=== PATIENT | female | born 1960 | race Caucasian/White ===

== ENCOUNTER 2020-05-17 18:01 | Emergency (ER) | payer OTHER ==
[~2020-05-17 18:01] MED LIST: ASPIR 8181 MG PO; CELEBREX 100MG100 MG PO; CETIRIZINE HCL10 MG PO; COREG 3.125M3.125 MG PO; CYMBALTA60 MG PO; DITROPAN XL5 MG PO; ELIQUIS5 MG PO; FOLIC ACID 1 MG1 MG PO; K-DUR TAB 20 M20 MEQ PO; LIPITOR TAB 1010 MG PO; LODINE CAP 300300 MG PO; LYRICA75 MG PO; MEDROL4 MG PO; MELATONIN3 MG PO; NITROSTAT 0.425 TAB SL; PREDNISONE 10 M10 MG PO; PREDNISONE 20 M20 MG PO; PREDNISONE5 M1 PO; PROTONIX40 MG PO; REQUIP1 MG PO; TENORMIN 50 MG50 MG PO; VITAMIN B-121000 MCG PO; VITAMIN B-6100 MG PO; VITAMIN D250000 UNIT PO; ZANAFLEX4 MG PO; ZAROXOLYN/DIULO5 MG PO; ZYLOPRIM 100 M100 MG PO
[2020-05-17 19:58] LABS: HEMOGLOBIN 12.4 gm/dl (12.3-15.3); RED BLOOD COUNT 4.51 M/UL (4.00-5.10)
[2020-05-17 20:24] LABS: BUN/CREATININE RATIO 20 (0-10)
== END 2020-05-17 22:24 | disposition home or self-care (01) ==
LOC: ER1 18:01
PROVIDERS: Physician Assistant Medical
DX: M79.89 Other specified soft tissue disorders (principal); M06.9 Rheumatoid arthritis, unspecified; Z86.73 Personal history of transient ischemic attack (TIA), and cerebral infarction without residual deficits; Z96.652 Presence of left artificial knee joint
CPT/HCPCS: 36415; 73564; 80053; 85025; 85379; 85610; 99284; Q9967

== ENCOUNTER → 2020-05-18 | Outpatient (CLI) | payer OTHER ==
[~2020-05-18] MED LIST changes: +ALLOPURINOL100 MG PO; +DULOXETINE HCL60 MG PO; +ENDOCET 7.5-321 EACH PO; +FOLIC ACID1 MG PO; +LEFLUNOMIDE10 MG PO; +MACROBID 100 M100 MG PO; +OXYBUTYNIN CHLO10 MG PO; +POTASSIUM CHLO20 ME1 PO; +PREDNISONE10 MG PO; +RINVOQ ER15 MG PO; +ROPINIROLE HCL2 MG PO; +TIZANIDINE HCL4 MG PO; +TOPROL XL 25 MG25 MG PO; +VITAMIN B-12 PO; +VITAMIN B-6 PO; +XARELTO 10 MG T10 MG PO; +XARELTO20 MG PO
== END ==
LOC: US 13:59
DX: M79.662 Pain in left lower leg (principal); M71.22 Synovial cyst of popliteal space [Baker], left knee
CPT/HCPCS: 93971

== ENCOUNTER 2020-06-19 05:54 | Emergency (ER) | payer OTHER ==
[~2020-06-19 05:54] MED LIST changes: -ALLOPURINOL100 MG PO; -DULOXETINE HCL60 MG PO; -ENDOCET 7.5-321 EACH PO; -FOLIC ACID1 MG PO; -LEFLUNOMIDE10 MG PO; -MACROBID 100 M100 MG PO; -OXYBUTYNIN CHLO10 MG PO; -POTASSIUM CHLO20 ME1 PO; -PREDNISONE10 MG PO; -RINVOQ ER15 MG PO; -ROPINIROLE HCL2 MG PO; -TIZANIDINE HCL4 MG PO; -TOPROL XL 25 MG25 MG PO; -VITAMIN B-12 PO; -VITAMIN B-6 PO; -XARELTO 10 MG T10 MG PO; -XARELTO20 MG PO
[2020-06-19 08:21] LABS: HEMOGLOBIN 11.8 gm/dl (12.3-15.3); RED BLOOD COUNT 4.39 M/UL (4.00-5.10)
[2020-06-19 08:43] LABS: BUN/CREATININE RATIO 24 (0-10)
== END 2020-06-19 12:45 | disposition home or self-care (01) ==
LOC: ER1 05:54
PROVIDERS: Student in an Organized Health Care Education/Training Program
DX: M06.9 Rheumatoid arthritis, unspecified (principal); Z86.711 Personal history of pulmonary embolism; Z79.899 Other long term (current) drug therapy; Z20.822 Contact with and (suspected) exposure to COVID-19
CPT/HCPCS: 0240U; 80053; 81001; 82550; 82553; 83874; 83880; 84484; 85025; 93005; 96374; 96375; 99283; J1100; J1885; J7120

== ENCOUNTER → 2020-07-06 | Outpatient (CLI) | payer OTHER ==
[~2020-07-06] MED LIST changes: +ALLOPURINOL100 MG PO; +DULOXETINE HCL60 MG PO; +ENDOCET 7.5-321 EACH PO; +FOLIC ACID1 MG PO; +LEFLUNOMIDE10 MG PO; +MACROBID 100 M100 MG PO; +OXYBUTYNIN CHLO10 MG PO; +POTASSIUM CHLO20 ME1 PO; +PREDNISONE10 MG PO; +RINVOQ ER15 MG PO; +ROPINIROLE HCL2 MG PO; +TIZANIDINE HCL4 MG PO; +TOPROL XL 25 MG25 MG PO; +VITAMIN B-12 PO; +VITAMIN B-6 PO; +XARELTO 10 MG T10 MG PO; +XARELTO20 MG PO
== END ==
LOC: KOH-I 10:00
DX: Z96.652 Presence of left artificial knee joint (principal); M71.21 Synovial cyst of popliteal space [Baker], right knee; M25.462 Effusion, left knee
CPT/HCPCS: 73700

== ENCOUNTER → 2020-07-13 | Outpatient (CLI) | payer OTHER ==
[2020-07-13 12:52] LABS: HEMOGLOBIN 12.4 gm/dl (12.3-15.3); RED BLOOD COUNT 4.6 M/UL (4.00-5.10); WHITE BLOOD COUNT 6.2 K/UL (4.5-11.0)
[2020-07-13 13:08] LABS: BUN/CREATININE RATIO 23 (0-10)
== END ==
LOC: EDSTATUS 10:30 → OPSV2 10:30
PROVIDERS: Orthopaedic Surgery
DX: Z01.812 Encounter for preprocedural laboratory examination (principal); Z01.810 Encounter for preprocedural cardiovascular examination; Z01.818 Encounter for other preprocedural examination; M47.814 Spondylosis without myelopathy or radiculopathy, thoracic region; T84.89XA Other specified complication of internal orthopedic prosthetic devices, implants and grafts, initial encounter
CPT/HCPCS: 36415; 71046; 80048; 81001; 85025; 85652; 86140; 87077; 87081; 87086; 87186; 93005

== ENCOUNTER 2020-07-17 08:15 | Inpatient (IN) | payer OTHER ==
[~2020-07-17] VITALS: Ht 165.1 cm; Wt 117.9 kg
[~2020-07-17 08:15] MED LIST changes: -ALLOPURINOL100 MG PO; -DULOXETINE HCL60 MG PO; -ENDOCET 7.5-321 EACH PO; -FOLIC ACID1 MG PO; -LEFLUNOMIDE10 MG PO; -MACROBID 100 M100 MG PO; -OXYBUTYNIN CHLO10 MG PO; -POTASSIUM CHLO20 ME1 PO; -PREDNISONE10 MG PO; -RINVOQ ER15 MG PO; -ROPINIROLE HCL2 MG PO; -TIZANIDINE HCL4 MG PO; -TOPROL XL 25 MG25 MG PO; -VITAMIN B-12 PO; -VITAMIN B-6 PO; -XARELTO 10 MG T10 MG PO; -XARELTO20 MG PO
[2020-07-17] MEDS ORDERED: PREDNISONE10 MG PO (10:17)
[2020-07-17] MEDS ORDERED: POTASSIUM CHLO20 ME1 PO (10:17)
[2020-07-17] MEDS ORDERED: XARELTO20 MG PO (10:18)
[2020-07-17] MEDS ORDERED: RINVOQ ER15 MG PO (10:19)
[2020-07-17] MEDS ORDERED: TIZANIDINE HCL4 MG PO (10:19)
[2020-07-17] MEDS ORDERED: LEFLUNOMIDE10 MG PO (10:20)
[2020-07-17] MEDS ORDERED: ROPINIROLE HCL2 MG PO (10:21)
[2020-07-17] MEDS ORDERED: ALLOPURINOL100 MG PO (10:21)
[2020-07-17] MEDS ORDERED: ZAROXOLYN/DIULO5 MG PO (10:21)
[2020-07-17] MEDS ORDERED: TOPROL XL 25 MG25 MG PO (10:21)
[2020-07-17] MEDS ORDERED: OXYBUTYNIN CHLO10 MG PO (10:22)
[2020-07-17] MEDS ORDERED: PROTONIX40 MG PO (10:22)
[2020-07-17] MEDS ORDERED: FOLIC ACID1 MG PO (10:22)
[2020-07-17] MEDS ORDERED: LYRICA75 MG PO (10:23)
[2020-07-17] MEDS ORDERED: DULOXETINE HCL60 MG PO (10:24)
[2020-07-17] MEDS ORDERED: VITAMIN B-6 PO (10:24)
[2020-07-17] MEDS ORDERED: VITAMIN B-12 PO (10:25)
[2020-07-17] MEDS ORDERED: MACROBID 100 M100 MG PO (10:50)
[2020-07-17] MEDS ORDERED: ENDOCET 7.5-321 EACH PO (11:38)
[2020-07-17 16:10] LABS: HEMOGLOBIN 10.9 gm/dl (12.3-15.3); RED BLOOD COUNT 4.05 M/UL (4.00-5.10); WHITE BLOOD COUNT 23.4 K/UL (4.5-11.0)
[2020-07-18 06:15] LABS: HEMOGLOBIN 9.9 gm/dl (12.3-15.3); RED BLOOD COUNT 3.65 M/UL (4.00-5.10); WHITE BLOOD COUNT 10.8 K/UL (4.5-11.0)
[2020-07-18 06:32] LABS: BUN/CREATININE RATIO 20 (0-10)
--- NOTE | 2020-07-18 13:52 | NUR ---
REPORTED TO DR. SALAZAR PATIENT'S INCREASE HEART RATE. ORDERS RECEIVED
--- NOTE | 2020-07-18 22:30 | NUR ---
2225 Kt 5.1 PT STATES THAT MY POTASSIUM DROPS QUICK. PT STATES SHE SHOULD TAKE IT THT IT DROPS FAST AND SHE HAS BEEN TO ER PULTIPLE TIMES FOR LOW Kt.
--- NOTE | 2020-07-19 04:03 | NUR ---
07/18/20 2330 PT USING CPAP
[2020-07-19 05:28] LABS: WHITE BLOOD COUNT 10.1 K/UL (4.5-11.0)
[2020-07-19 05:29] LABS: RED BLOOD COUNT 2.29 M/UL (4.00-5.10)
[2020-07-19 05:32] LABS: HEMOGLOBIN 6.2 gm/dl (12.3-15.3)
[2020-07-19 05:54] LABS: BUN/CREATININE RATIO 23 (0-10)
[2020-07-19 16:00] LABS: HEMOGLOBIN 8.1 gm/dl (12.3-15.3)
[2020-07-20 03:51] LABS: HEMOGLOBIN 7.8 gm/dl (12.3-15.3); WHITE BLOOD COUNT 9.1 K/UL (4.5-11.0)
[2020-07-20 03:53] LABS: RED BLOOD COUNT 2.75 M/UL (4.00-5.10)
[2020-07-20 04:10] LABS: BUN/CREATININE RATIO 24 (0-10)
[2020-07-21 03:50] LABS: HEMOGLOBIN 7.8 gm/dl (12.3-15.3); RED BLOOD COUNT 2.76 M/UL (4.00-5.10); WHITE BLOOD COUNT 8.4 K/UL (4.5-11.0)
[2020-07-22 02:16] LABS: HEMOGLOBIN 7.7 gm/dl (12.3-15.3); RED BLOOD COUNT 2.77 M/UL (4.00-5.10); WHITE BLOOD COUNT 7.7 K/UL (4.5-11.0)
[2020-07-22 02:42] LABS: BUN/CREATININE RATIO 12 (0-10)
[2020-07-23 04:34] LABS: HEMOGLOBIN 7.3 gm/dl (12.3-15.3); RED BLOOD COUNT 2.7 M/UL (4.00-5.10); WHITE BLOOD COUNT 7.6 K/UL (4.5-11.0)
[2020-07-23 08:15] LABS: BUN/CREATININE RATIO 15 (0-10)
[2020-07-24 06:49] LABS: RED BLOOD COUNT 2.87 M/UL (4.00-5.10); WHITE BLOOD COUNT 6.9 K/UL (4.5-11.0)
[2020-07-24 12:11] LABS: BUN/CREATININE RATIO 16 (0-10)
[2020-07-24] MEDS ORDERED: XARELTO 10 MG T10 MG PO (14:04)
--- NOTE | 2020-07-24 18:08 | NUR ---
CALLED REPORT TO BANDAR AT [facility].
== END 2020-07-24 17:40 | disposition home health service (06) | DRG 467 ==
LOC: ZOBSOF 08:41 → M/S 17:44
PROVIDERS: Internal Medicine; Nurse Practitioner Family; ADMIT Orthopaedic Surgery
PROC: 30233N1 Transfusion of Nonautologous Red Blood Cells into Peripheral Vein, Percutaneous Approach (ICD-10-PCS; 2020-07-17)
PROC: 0SRD0J9 Replacement of Left Knee Joint with Synthetic Substitute, Cemented, Open Approach (ICD-10-PCS; 2020-07-17)
PROC: 0SPD0JZ Removal of Synthetic Substitute from Left Knee Joint, Open Approach (ICD-10-PCS; principal; 2020-07-17 11:40)
DX: T84.033A Mechanical loosening of internal left knee prosthetic joint, initial encounter (principal); D62 Acute posthemorrhagic anemia; Z68.41 Body mass index [BMI] 40.0-44.9, adult; K21.9 Gastro-esophageal reflux disease without esophagitis; M97.12XA Periprosthetic fracture around internal prosthetic left knee joint, initial encounter; E66.01 Morbid (severe) obesity due to excess calories; I10 Essential (primary) hypertension; M06.9 Rheumatoid arthritis, unspecified; G47.33 Obstructive sleep apnea (adult) (pediatric); J30.2 Other seasonal allergic rhinitis; Z96.652 Presence of left artificial knee joint; M10.9 Gout, unspecified; M79.7 Fibromyalgia; D72.829 Elevated white blood cell count, unspecified; G89.29 Other chronic pain; E78.5 Hyperlipidemia, unspecified; G62.9 Polyneuropathy, unspecified; F41.9 Anxiety disorder, unspecified; M47.894 Other spondylosis, thoracic region; N30.90 Cystitis, unspecified without hematuria; M54.9 Dorsalgia, unspecified; X58.XXXA Exposure to other specified factors, initial encounter; R00.0 Tachycardia, unspecified; Y83.8 Other surgical procedures as the cause of abnormal reaction of the patient, or of later complication, without mention of misadventure at the time of the procedure; Z86.711 Personal history of pulmonary embolism; Z87.440 Personal history of urinary (tract) infections; Z82.49 Family history of ischemic heart disease and other diseases of the circulatory system; Z83.3 Family history of diabetes mellitus; Z80.8 Family history of malignant neoplasm of other organs or systems; Z72.89 Other problems related to lifestyle; Z90.49 Acquired absence of other specified parts of digestive tract; Y92.89 Other specified places as the place of occurrence of the external cause; Z87.11 Personal history of peptic ulcer disease; Z86.16 Personal history of COVID-19
CPT/HCPCS: 36415; 36430; 71045; 73560; 80048; 81001; 85014; 85018; 85025; 85027; 86850; 86900; 86901; 86920; 87070; 87086; 87205; 93005; 97110; 97110-GP-CQ; 97161; 97166; 97530; 97530-GP-CQ; 97535; C1713; C1762; C1776; J0171; J0690; J1100; J1644; J1885; J2250; J2270; J2405; J2550; J2704; J2710; J2795; J3010; J3370; J7030; J7040; J7050; J7120; P9016

== ENCOUNTER → 2021-03-25 | Outpatient (CLI) | payer OTHER ==
[~2021-03-25] MED LIST changes: +ALLOPURINOL100 MG PO; +DULOXETINE HCL60 MG PO; +ENDOCET 7.5-321 EACH PO; +FOLIC ACID1 MG PO; +LEFLUNOMIDE10 MG PO; +MACROBID 100 M100 MG PO; +OXYBUTYNIN CHLO10 MG PO; +POTASSIUM CHLO20 ME1 PO; +PREDNISONE10 MG PO; +RINVOQ ER15 MG PO; +ROPINIROLE HCL2 MG PO; +TIZANIDINE HCL4 MG PO; +TOPROL XL 25 MG25 MG PO; +VITAMIN B-12 PO; +VITAMIN B-6 PO; +VITAMIN C1000 MG PO; +XARELTO 10 MG T10 MG PO; +XARELTO20 MG PO; +ZYRTEC10 MG PO
[2021-03-25 14:56] LABS: HEMOGLOBIN 12.5 gm/dl (12.3-15.3); RED BLOOD COUNT 4.69 M/UL (4.00-5.10)
[2021-03-25 15:16] LABS: BUN/CREATININE RATIO 21 (0-10)
== END ==
LOC: OPSV2 03-19 11:00 → EDSTATUS 13:00 → OPSV2 13:06
PROVIDERS: Orthopaedic Surgery
DX: Z01.818 Encounter for other preprocedural examination (principal)
CPT/HCPCS: 36415; 71046; 80048; 85027; 85652; 86140; 93005

== ENCOUNTER → 2021-04-03 | Outpatient (CLI) | payer OTHER ==
[~2021-04-03] MED LIST changes: +CYCLOBENZAPRINE10 MG PO; +OXYCODON-ACETA1 EAC1 PO; +ZOFRAN 4 MG TAB4 MG PO
[2021-04-03 14:10] LABS: BUN/CREATININE RATIO 25 (0-10)
== END ==
LOC: LAB 13:26
PROVIDERS: Orthopaedic Surgery
DX: Z01.812 Encounter for preprocedural laboratory examination (principal)
CPT/HCPCS: 36415; 80048; 86850; 86900; 86901

== ENCOUNTER → 2021-04-11 | Outpatient (CLI) | payer OTHER ==
[~2021-04-11] MED LIST changes: +ARAVA10 MG PO; +B-121000 MCG PO; -VITAMIN B-12 PO; -VITAMIN B-6 PO; +VITAMIN B-650 MG PO
== END ==
LOC: US 16:30
DX: M79.661 Pain in right lower leg (principal); Z96.659 Presence of unspecified artificial knee joint; Z86.718 Personal history of other venous thrombosis and embolism
CPT/HCPCS: 93971

== ENCOUNTER → 2021-09-08 | Emergency (ER) | payer OTHER ==
[2021-09-08 01:58] LABS: HEMOGLOBIN 11.3 gm/dl (12.3-15.3); RED BLOOD COUNT 4.21 M/UL (4.00-5.10); WHITE BLOOD COUNT 5.6 K/UL (4.5-11.0)
[2021-09-08 02:20] LABS: BUN/CREATININE RATIO 17 (0-10)
== END | disposition home or self-care (01) ==
LOC: ER1 00:07
PROVIDERS: Student in an Organized Health Care Education/Training Program
DX: R51.9 Headache, unspecified (principal); I87.8 Other specified disorders of veins; M06.9 Rheumatoid arthritis, unspecified; Z90.49 Acquired absence of other specified parts of digestive tract
CPT/HCPCS: 70450; 71045; 80053; 82550; 82553; 83880; 84484; 85025; 85652; 86140; 93005; 96374; 96375; 99285; J1200; J1885; J2405; Q9967